=== PATIENT | male | born 1945 | race Caucasian/White ===

== ENCOUNTER 2019-05-03 00:14 | Outpatient (CLI) | payer MEDICARE, BC, SELFPAY ==
--- NOTE | 2019-05-03 11:57 | DI.NM_ITS ---
APPROVED REPORT Exam: Pharmacologic Patient Location: Out-Patient Room/Bed: Stress Nurse: Heidi Tomlinson RN BMI: 0 Baseline Rhythm: Sinus Rhythm Comment: Borderline prolonged QT interval Indications: Coronary arteriosclerosis Medical History Medical History: HTN. CAD. Cardiac Medications: Atenolol. Eliquis. Fish Oil. Nifedipine. Torsemide. Allergies: Allopurinol. Casodex. Latex. Naproxen. Penicillins. Cardiac Risk Factors: HTN. CAD. MARTY. CKD on dialysis. Lung Sounds: Clear to auscultation Heart Sounds: Murmur Stress Test Details Test: Pharmacologic stress testing performed using 0.4 mg of regadenoson per 5 mL given IV over 10 s econds. Nuclear Acquisition: Rest Tc-99m/Stress Tc-99m 1 day Rest Isotope: Tc-99m Sestamibi. Dose: 11.0 Date: 05/03/2019 Injection Time: 1030 Stress Isotope: Tc-99m Sestamibi. Dose: 32.3 Date: 05/03/2019 Injection Time: 1230 HR Resting HR Supine: 54 bpm Max Heart Rate (APMHR): 147 bpm Target HR (85% APMHR): 124 bpm Max HR Achieved: 60 bpm % of APMHR: 40 BP Resting BP Supine: 150/80 mmHg Max BP: 150/80 mmHg ECG Resting ECG: Sinus rhythm. Borderline prolonged QT interval. Ectopy: PACs. Stress ECG: Sinus Rhythm. Borderline prolonged QT interval. ST Change: No significant ST segment changes Recovery ECG: Sinus Rhythm. Borderline prolonged QT interval. Recovery ST Change: No significant ST segment changes Clinical Stress Symptoms: Patient experienced no significant side effects from Lexiscan injection Stress ECG Conclusion 1. There is no evidence of ischemia on the ECG portion of this exam. Protocol Used: Regadenoson Stress Test Summary STAGE HR BP Symptoms NOTES Supine 54 150/80 1 min post Lexiscan injection 60 120/80 4 min post Lexiscan injection 60 140/80 9 min post Lexiscan injection 58 142/80 MPI Conclusion Ejection fraction was 57%. There were no wall motion abnormalities. There is no evidence of ischemia on the imaging portion of this exam. This represents a normal SPECT stress test.
[2019-05-03] MEDS: Regadenoson 0.4 MG/5 ML SYR IVP (13:02)
== END 2019-05-03 00:34 ==
PROVIDERS: PCP Internal Medicine; Visit Provider Internal Medicine Interventional Cardiology
DX: I25.10 Atherosclerotic heart disease of native coronary artery without angina pectoris (principal); R07.9 Chest pain, unspecified; R01.1 Cardiac murmur, unspecified; I10 Essential (primary) hypertension; G47.33 Obstructive sleep apnea (adult) (pediatric); N18.9 Chronic kidney disease, unspecified; Z99.2 Dependence on renal dialysis
CPT/HCPCS: 78452; 93016; 93018; 93017; J2785